=== PATIENT | female | born 2000 | race Caucasian/White ===

== ENCOUNTER 2019-05-22 14:19 | Emergency (ER) | payer OTHER ==
[~2019-05-22] VITALS: Ht 165.1 cm; Wt 74.8 kg
[2019-05-22] MEDS ORDERED: NAPROSYN500 MG PO (15:22)
[2019-05-22] MEDS ORDERED: NORCO 5-325 TA1 EACH PO (15:22)
[2019-05-22] MEDS ORDERED: FLOMAX0.4 MG PO (15:22)
== END 2019-05-22 16:45 | disposition home or self-care (01) ==
LOC: ED 14:19
DX: N13.2 Hydronephrosis with renal and ureteral calculous obstruction (principal); R31.9 Hematuria, unspecified
CPT/HCPCS: 74176; 99285-25

== ENCOUNTER 2019-10-01 16:18 | Emergency (ER) | payer OTHER ==
[~2019-10-01] VITALS: Ht 165.1 cm; Wt 71.7 kg
[~2019-10-01 16:18] MED LIST: FLOMAX0.4 MG PO; NAPROSYN500 MG PO; NORCO 5-325 TA1 EACH PO
[2019-10-01] MEDS ORDERED: PERCOCET 5-3251 EACH PO (19:17)
[2019-10-01] MEDS ORDERED: ONDANSETRON ODT8 MG PO (19:17)
== END 2019-10-01 19:55 | disposition home or self-care (01) ==
LOC: ED 16:18
DX: S59.202A Unspecified physeal fracture of lower end of radius, left arm, initial encounter for closed fracture (principal); X58.XXXA Exposure to other specified factors, initial encounter
CPT/HCPCS: 25605; 73090; 73110; 99283-25; J1170; J2405; J2704; J7030